=== PATIENT | female | born 1945 | race Caucasian/White ===

== ENCOUNTER 2019-09-17 14:18 | Inpatient (IN) | payer MEDICARE, MEDICAID, SELFPAY ==
[2019-09-17] VITALS (53 sets, daily range): BP systolic 68–136; BP diastolic 16–78; PULSE 57–110; RESP 9–19; TEMP 35.7–36.9; O2SAT 83–100
--- NOTE | 2019-09-17 14:15 | DI.CT_ITS ---
EXAM: CT HEAD - STROKE PROTOCOL CLINICAL HISTORY: AMS. TECHNIQUE: Imaging Protocol: Axial computed tomography images with coronal and sagittal reformatted images were created and reviewed COMPARISON: No exams were available for comparison FINDINGS: Ventricles and Extra axial spaces: Moderate atrophy is noted. The ventricles are normal in size. Hemorrhage: None. Cerebral parenchyma: Mild white matter changes of small vessel disease also appear stable.. Midline shift: None. Brainstem/Cerebellum: Normal. Calvarium: Normal. Visualized Paranasal sinuses/Mastoids: Clear. Soft Tissues: Unremarkable. IMPRESSION: No acute intracranial process.Stable appearance compared with 27 April 2017. RADIATION DOSE DELIVERED: DATA REPOSITORY: All CT scans at this facility are submitted to the National Radiology Data Registry (NRDR) Dose Index Registry (DIR) with the [employer] (ACR). RADIATION OPTIMIZATION: All CT scans at this facility use at least one of these dose optimization te chniques: automated exposure control; mA and/or kV adjustment per patient size (includes targeted exa ms where dose is matched to clinical indication); or iterative reconstruction.
--- NOTE | 2019-09-17 14:47 | W.ED.GENAD ---
Discharge Plan Discharge Details Chief Complaint: AMS/LOC Admit Date/Time: 09/17/19 18:36 Admit Provider: Nelson Pinto Attending Provider: Nelson Pinto Primary Care Provider: Satish Poole ED Provider: Luz Canas Discharge Data Discharge Date/Time-TO BE ENTERED AT DEPARTURE: 09/17/19 19:41 Medical Decision Making Gale Rojas is a 74 y/o woman with history of severe Alzheimer's disease presenting to the emergency department with unresponsiveness after several days of generalized weakness and not eating or drinking. On exam patient with GCS 7, withdraws from pain. Concern for altered mental status of unknown etiology in setting of patient with severe advanced dementia, advanced directive stating DNR/DNI, no antibiotics to be given at end of life, patient wishes to at home. Patient underwent CT upon arrival, which is read as no acute process. Unclear etiology of altered mental status at this time, ischemic stroke versus metabolic/lyte derangement versus infection versus other. I had a lengthy discussion with patient's daughter, who states that she wants her mother to be comfortable and receive fluids and antibiotics if indicated, otherwise does not want her mother to have intervention as per her wishes. I had a lengthy discussion with the patient regarding patient's very poor prognosis and likely imminent . Patient's daughter verbalizes understanding, and reiterates that she does not want her mother to receive significant intervention, but does want her to have antibiotics and IV fluid for comfort. Initial difficulty drawing labs likely due to patient with severe dehydration. Plan for IV fluid hydration, will obtain screening labs. I examined patient's genitalia with nursing during Ballesteros placement, patient with significant discharge from urethra with purulent appearance, urine cloudy. Patient with significant apparent discomfort during Ballesteros placement. Plan to start ceftriaxone for UTI. Screening labs show severe electrolyte derangement, including hyponatremia at 180, creatinine greater than 3. We will continue IV fluid hydration with normal saline as discussed with admitting physician Dr. Pinto. Plan for admission for UTI, dehydration. Clinical impression: UTI, dehydration Disposition: [facility] inpatient Medical Records Medical records reviewed: Yes I reviewed the patient's medical records. Imaging Data Radiologic Study: Attestation: I personally reviewed and interpreted this imaging study as follows: Radiologist's impression: EXAM: CT HEAD - STROKE PROTOCOL CLINICAL HISTORY: AMS. TECHNIQUE: Imaging Protocol: Axial computed tomography images with coronal and sagittal reformatted images were created and reviewed COMPARISON: No exams were available for comparison FINDINGS: Ventricles and Extra axial spaces: Moderate atrophy is noted. The ventricles are normal in size. Hemorrhage: None. Cerebral parenchyma: Mild white matter changes of small vessel disease also appear stable.. Midline shift: None. Brainstem/Cerebellum: Normal. Calvarium: Normal. Visualized Paranasal sinuses/Mastoids: Clear. Soft Tissues: Unremarkable. IMPRESSION: No acute intracranial process.Stable appearance compared with 27 April 2017. Lab Data Lab results reviewed: Yes I reviewed the patient's lab results. Labs: Laboratory Tests Range/Units 09/17/19 09/17/19 09/17/19 15:20 17:32 17:32 WBC (4.4-10.8) k/cumm 22.20 H RBC (4.00-5.20) m/cumm 5.90 H Hgb (12.0-15.5) g/dL 18.0 H Hct (36.0-46.0) % 63.2 H* MCV (80-95) fL 107.1 H MCH (27.0-33.0) pg 30.5 MCHC (32.0-36.0) g/dL 28.5 L RDW (11.7-14.6) % 15.8 H Plt Count (130-400) x1000/uL 180 MPV (8.0-11.0) fL 13.7 H Immature Gran % % 0.4 Neutrophils % 90.2 Lymphocytes % 4.8 Monocytes % 4.6 Eosinophils % 0.0 Basophils % 0.0 Absolute Neutrophils (1.2-6.7) k/cumm 20.02 H Absolute Lymphocytes (1.2-3.4) k/cumm 1.07 L Absolute Monocytes (0.11-0.7) k/cumm 1.02 H Absolute Eosinophils (0.0-0.7) k/cumm 0.00 Absolute Basophils (0.0-0.2) k/cumm 0.00 Differential Comment Diff reviewed RBC Morphology See below Macrocytosis 3+ PT Cancelled INR Cancelled Sodium (136-145) mmol/L 180 H* Potassium (3.5-5.1) mmol/L 3.9 Chloride (98-107) mmol/L 139 H Carbon Dioxide (21.0-32.0) mmol/L 22.9 Anion Gap (3-11) mmol/L 18.1 H BUN (7-18) mg/dL 153 H* Creatinine (0.55-1.02) mg/dL 3.99 H* Estimated GFR/1.73 m2 (mL/min/1.73m2) 11.01 Glucose (74-106) mg/dL 137 H Lactate (0.6-1.4) mmol/L Calcium (8.5-10.1) mg/dL 8.6 Total Bilirubin (0.2-1.0) mg/dL 1.1 H AST (15-37) U/L 100 H ALT (14-59) U/L 243 H Alkaline Phosphatase (46-116) U/L 115 Troponin I (<0.06) ng/Ml 0.08 H* Total Protein (6.4-8.2) g/dL 7.5 Albumin (3.4-5.0) g/dL 3.4 Range/Units 09/17/19 09/17/19 17:32 17:36 WBC (4.4-10.8) k/cumm RBC (4.00-5.20) m/cumm Hgb (12.0-15.5) g/dL Hct (36.0-46.0) % MCV (80-95) fL MCH (27.0-33.0) pg MCHC (32.0-36.0) g/dL RDW (11.7-14.6) % Plt Count (130-400) x1000/uL MPV (8.0-11.0) fL Immature Gran % % Neutrophils % Lymphocytes % Monocytes % Eosinophils % Basophils % Absolute Neutrophils (1.2-6.7) k/cumm Absolute Lymphocytes (1.2-3.4) k/cumm Absolute Monocytes (0.11-0.7) k/cumm Absolute Eosinophils (0.0-0.7) k/cumm Absolute Basophils (0.0-0.2) k/cumm Differential Comment RBC Morphology Macrocytosis PT INR Sodium (136-145) mmol/L Potassium (3.5-5.1) mmol/L Chloride (98-107) mmol/L Carbon Dioxide (21.0-32.0) mmol/L Anion Gap (3-11) mmol/L BUN (7-18) mg/dL Creatinine (0.55-1.02) mg/dL Estimated GFR/1.73 m2 (mL/min/1.73m2) Glucose (74-106) mg/dL Lactate (0.6-1.4) mmol/L 3.1 H* Calcium (8.5-10.1) mg/dL Total Bilirubin (0.2-1.0) mg/dL AST (15-37) U/L ALT (14-59) U/L Alkaline Phosphatase (46-116) U/L Troponin I (<0.06) ng/Ml Cancelled Total Protein (6.4-8.2) g/dL Albumin (3.4-5.0) g/dL ECG Data Attestation: I personally reviewed and interpreted this ECG (s) as follows: Interpretation: EKG shows sinus tachycardia at 103, normal axis, nonspecific ST changes, no STEMI, nondiagnostic EKG HPI General Mode of arrival: EMS. Date/Time Provider Initiated Documentation: 09/17/19 14:35. Limitations to Documentation: altered mental status. Information obtained by: family, EMS, RN notes reviewed and old records reviewed. HPI Narrative: Gale Rojas is a 74-year-old woman with a history of advanced Alzheimer's disease presenting to the emergency department with unresponsiveness. Patient is accompanied by her daughter, who provides a history. Patient has a history of severe Alzheimer's disease, and per palliative care note 07/04/2019, patient is able to walk but is nonverbal at baseline. Patient's daughter reports that patient has declined significantly over the past year, with drastic decline in the past few days. Patient's daughter reports that she has a long assistant manager quality management for the patient who lives with her. Over the past few days patient has been eating very minimally, and has not been getting out of bed. Her daughter reports that patient did not get out of bed today, did not eat anything this morning (she normally nibbles on a small amount of food in the morning), and then became unarousable this afternoon. No known trauma or specific inciting event. Patient's daughter confirms that patient is DNR/DNI as per her advanced directive is on file. Patient's daughter reports that she has not seem to be in pain or had any other appreciable symptoms recently other than generalized weakness and decreased appetite. Related Data Home Medications Medication Instructions Recorded Confirmed melatonin 10 mg PO HS 09/17/16 09/17/19 citalopram 10 mg tablet 20 mg PO HS tab 02/14/19 09/17/19 memantine 5 mg tablet 5 mg PO BID 02/14/19 09/17/19 trazodone 100 mg tablet 100 mg PO TID PRN #90 tab 03/01/19 09/17/19 risperidone 0.5 mg tablet 0.5 mg PO TID PRN #90 tab 03/06/19 09/17/19 Previous Rx's Medication Instructions Recorded trazodone 100 mg tablet 100 mg PO TID PRN #90 tab 03/01/19 risperidone 0.5 mg tablet 0.5 mg PO TID PRN #90 tab 03/06/19 Allergies Allergy/AdvReac Type Severity Reaction Status Date / Time No Known Allergies Allergy Unverified 09/17/19 14:30 General Stated Complaint: AMS/LOC CHRISTOPHE: 2 Review of Systems Narrative: Constitutional: denies fevers, reports generalized weakness, fatigue, decreased appetite Eyes: denies eye pain ENT: denies ear pain, sore throat Cardiovascular: denies chest pain Respiratory: denies SOB, cough GI: denies abdominal pain, vomiting, diarrhea : denies flank pain MSK: denies back pain, neck pain, arthralgias Skin: denies rash Neuro: denies headaches, focal weakness Review of systems provided by patient's daughter [facility] Medical History (Updated 09/18/19 @ 14:28 by Lorie Pruitt MD) Alzheimer disease severe can still walk but language and ability to communicate verbally is gone Anxiety (Chronic) Apnea for greater than 15 seconds (Acute) Combative behavior (Chronic) primarily toward [facility] has both haldol and risperidone ordered but neither work, per staff I have not seen this behavior either of the 2 times I have met Gale will likely need placement soon- Dying care (Acute) Female hirsutism (Acute) Hearing loss Incontinence (Chronic) both urine and feces Insomnia (Chronic) 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 Granddaughter No problems noted. Social History (Updated 09/18/19 @ 14:27 by Lorie Pruitt MD) Smoking/Tobacco Use Status: Current every day Tobacco: How many years used: 50 Second Hand Exposure: Yes Reason tobacco screening was not done: limited life expectancy Drug use: Never Caregiver/Support person: Yes Household members: children Housing: apartment Number of Children: 1 number of grandchildren: 3 Communication Needs: Corrective Lenses Education Level: high school Details: didn't finish Do you need help understanding health information?: Always current occupation: retired; used to work in [employer] x 30 years What is your relationship status?: How often do you talk on the phone with friends or family?: never How often do you get together with friends or relatives?: three or more times per week Panel score (0-1 are the most socially isolated patients): 1 What type of physical activity do you participate in: walking and independent ambulation Duration: other Details: paces when anxious, on and off throughout the day Frequency: daily Special franco needs: No Agree to transfusion: No Seatbelt use: always Do you feel safe at home: Yes Do you feel safe in your relationship?: Yes Additional Social history: Lives with only daughter Elise, her and their daughter. Grew up in [place], [place]. Attends [employer] 6 days per week. No family car, so transported by [facility]. Doesn't do well with transportation. Still smokes, per report. Not witnessed. Hx from staff/med records. Exam Narrative Exam Narrative: Constitutional: Withdraws from pain, otherwise unresponsive, eyes closed, ill-appearing HENT: head atraumatic/normocephalic/normal inspection, mucous membranes dry Eyes: conjunctiva normal, sclera normal, pupils 3mm b/l Neck: no stridor, trachea midline Chest: normal inspection Resp: normal work of breathing, LCTAB Cardio: normal rate, normal rhythm GI: abdomen soft, non-tender, non-distended Skin: warm, dry, normal color, no rash Neuro: GCS 7 Ext: no edema Course Vital Signs Vital signs: Vital Signs Temperature 36.1 C L 09/17/19 14:23 Pulse 64 09/17/19 14:23 Blood Pressure 136/65 09/17/19 14:23 Pulse Oximetry 98 09/17/19 14:23 Temperature 36.1 C L 09/17/19 14:23 Temperature Source Temporal Artery Scan 09/17/19 14:23 Pulse 74 09/17/19 14:25 Respiratory Effort Non-Labored 09/17/19 14:27 Blood Pressure 136/65 09/17/19 14:25 Blood Pressure Mean 82 09/17/19 14:25 Blood Pressure Position Supine 09/17/19 14:23 Pulse Oximetry 100 09/17/19 14:27 Oxygen Delivery Method Room Air 09/17/19 14:23 Oxygen Flow Rate 0 09/17/19 14:23
[2019-09-17] MEDS: Normal Saline 1,000 ML 1000 ML IV ×2 (15:20→17:35)
[2019-09-17 15:34] LABS: Abs Immature Grans 0.04 k/cumm (0.0-0.09); Immature Grans % 0.4 %; Lymphocytes % 4.8; Mean Corp. HGB Concentration 28.5 g/dL (32.0-36.0); Mean Corpuscular Hemoglobin 30.5 pg (27.0-33.0); Mean Corpuscular Volume 107.1 fL (80-95); Mean Platelet Volume 13.7 fL (8.0-11.0); Monocytes % 4.6; Neutrophils % 90.2; RBC Distribution Width 15.8 % (11.7-14.6)
[2019-09-17 15:39] LABS: Absolute Lymphocyte Count 1.07 k/cumm (1.2-3.4); Absolute Monocyte Count 1.02 k/cumm (0.11-0.7); Absolute Neutrophil Count 20.02 k/cumm (1.2-6.7)
[2019-09-17 15:40] LABS: Platelet Count 180 x1000/uL (130-400)
[2019-09-17 15:48] LABS: HCT 63.2 % (36.0-46.0)
[2019-09-17 16:14] LABS: Diff Comment Diff Reviewed; Macrocytosis 3+
[2019-09-17 17:49] LABS: Lactate 3.1 mmol/L (0.6-1.4)
--- NOTE | 2019-09-17 18:25 | W.PM.HP.N ---
Date of service: 09/17/19 Time of Service: 18:25 Assessment and Plan Assessment and plan (1) Sepsis: Status: Acute Assessment and plan: Sepsis like picture, with profound dehydration. Prognosis guarded. Will add CXR, but empiric Rocephin a reasonable choice. Will continue saline and follow electrolytes and renal function. Patient remains DNR and daughter understands gravity of situation. History of Present Illness History of Present Illness Chief Complaint: change mental status Narrative: 74 female with advanced dementia, cared nfor at home by daughter. Here with several days of increasing lethargy and poor intake. In ER w/u of note for BP 89/sys, WBC 22K, HCT 63, Na 180 and urine noted to be grossly cloudy (U/A pending). Care goals reviewed with daughter, wished comfort to be main focus, but wishes to try antibiotics and IVF, nothing further. Patient given liter of saline and dose Rocephin. Admitted for further management Review of Systems Unobtainable due to mental status [facility] Medical History Alzheimer disease severe can still walk but language and ability to communicate verbally is gone Anxiety (Chronic) Combative behavior (Chronic) primarily toward [facility] has both haldol and risperidone ordered but neither work, per staff I have not seen this behavior either of the 2 times I have met Gale will likely need placement soon- Hearing loss Incontinence (Chronic) both urine and feces Insomnia (Chronic) Mixed Alzheimer's and vascular dementia with behavior disturbances (Acute) Poor hygiene (Acute) Sundowning (Acute) takes trazodone to prevent worst sx Unintentional weight loss (Chronic) continues to lose weight Family History Daughter No problems noted. Granddaughter No problems noted. Social History Smoking/Tobacco Use Status: Current every day Tobacco: How many years used: 50 Second Hand Exposure: Yes Reason tobacco screening was not done: limited life expectancy Drug use: Never Caregiver/Support person: Yes Household members: children Housing: apartment Number of Children: 1 number of grandchildren: 3 Communication Needs: Corrective Lenses Education Level: high school Details: didn't finish Do you need help understanding health information?: Always current occupation: retired; used to work in [employer] x 30 years What is your relationship status?: How often do you talk on the phone with friends or family?: never How often do you get together with friends or relatives?: three or more times per week Panel score (0-1 are the most socially isolated patients): 1 What type of physical activity do you participate in: walking and independent ambulation Duration: other Details: paces when anxious, on and off throughout the day Frequency: daily Special franco needs: No Agree to transfusion: No Seatbelt use: always Do you feel safe at home: Yes Do you feel safe in your relationship?: Yes Additional Social history: Lives with only daughter Elise, her and their daughter. Grew up in [place], [place]. Attends [email or web address] 6 days per week. No family car, so transported by [facility]. Doesn't do well with transportation. Still smokes, per report. Not witnessed. Hx from staff/med records. Meds Home Medications and Allergies Home Medications Medication Instructions Recorded Confirmed Type melatonin 10 mg PO HS 09/17/16 04/27/17 History citalopram 10 mg tablet 20 mg PO HS tab 02/14/19 02/14/19 History memantine 5 mg tablet 5 mg PO BID 02/14/19 02/14/19 History trazodone 100 mg tablet 100 mg PO TID PRN #90 tab 03/01/19 Rx risperidone 0.5 mg tablet 0.5 mg PO TID PRN #90 tab 03/06/19 Rx Allergies Allergy/AdvReac Type Severity Reaction Status Date / Time No Known Allergies Allergy Unverified 09/17/19 14:30 Exam Narrative Exam Narrative: 89/60, 94, 13, 36.1, 83% RA. HEENT atraumatic; neck supple, lungs limited effort, grossly clear; heart RRR, abdomen soft and NT; extremities w/o edema; neuro non-specific response noxious stimuli Results Labs Result diagrams: 09/17/19 15:20 09/17/19 15:20 Labs: Laboratory Results - last 24 hr 09/17/19 09/17/19 09/17/19 15:20 17:32 17:36 WBC 22.20 H RBC 5.90 H Hgb 18.0 H Hct 63.2 H* MCV 107.1 H MCH 30.5 MCHC 28.5 L RDW 15.8 H Plt Count 180 MPV 13.7 H Immature Gran % 0.4 Neutrophils % 90.2 Lymphocytes % 4.8 Monocytes % 4.6 Eosinophils % 0.0 Basophils % 0.0 Absolute Neutrophils 20.02 H Absolute Lymphocytes 1.07 L Absolute Monocytes 1.02 H Absolute Eosinophils 0.00 Absolute Basophils 0.00 Differential Comment Diff reviewed RBC Morphology See below Macrocytosis 3+ Lactate 3.1 H* Troponin I Cancelled Last Vital Signs Temp 36.1 C L 09/17/19 14:23 Pulse 94 H 09/17/19 18:16 Resp 13 09/17/19 18:16 BP 89/60 L 09/17/19 18:16 Pulse Ox 83 L 09/17/19 18:16
[2019-09-17 18:30] LABS: ALT 243 U/L (14-59); AST 100 U/L (15-37); Albumin 3.4 g/dL (3.4-5.0); Alkaline Phosphatase 115 U/L (46-116); Anion Gap 18.1 mmol/L (3-11); Bilirubin, Total 1.1 mg/dL (0.2-1.0); CO2 22.9 mmol/L (21.0-32.0); Calcium 8.6 mg/dL (8.5-10.1); Chloride 139 mmol/L (98-107); Estimated GFR 11.01 (mL/min/1.73m2); Glucose 137 mg/dL (74-106); Potassium 3.9 mmol/L (3.5-5.1); Total Protein 7.5 g/dL (6.4-8.2)
[2019-09-17 18:31] LABS: BUN 153 mg/dL (7-18); CREATININE 3.99 mg/dL (0.55-1.02)
[2019-09-17 18:32] LABS: Troponin I 0.08 ng/Ml (<0.06)
[2019-09-17 18:34] LABS: Sodium 180 mmol/L (136-145)
[2019-09-17] MEDS: Normal Saline 1,000 ML 125 ML IV (21:03)
[2019-09-17] MEDS: cefTRIAXone 1,000 MG in Normal Saline 50 ML 100 MG IVPB (22:31)
[2019-09-18 03:12] VITALS: BP 113/77; PULSE 86; RESP 21; TEMP 36.8; O2SAT 96
[2019-09-18] MEDS: SODIUM CHLORIDE 0.45% 1,000 ML 100 ML IV (04:44)
[2019-09-18 06:59] LABS: HCT 52.8 % (36.0-46.0); HGB 15.8 g/dL (12.0-15.5); Mean Corp. HGB Concentration 29.9 g/dL (32.0-36.0); Mean Corpuscular Hemoglobin 30.6 pg (27.0-33.0); Mean Corpuscular Volume 102.1 fL (80-95); Mean Platelet Volume 13.2 fL (8.0-11.0); Platelet Count 156 x1000/uL (130-400); RBC 5.17 m/cumm (4.00-5.20); RBC Distribution Width 16.5 % (11.7-14.6); White Blood Cell Count 17.73 k/cumm (4.4-10.8)
[2019-09-18 07:18] LABS: Anion Gap 13.5 mmol/L (3-11); CO2 21.5 mmol/L (21.0-32.0); CREATININE 3.18 mg/dL (0.55-1.02); Calcium 7.7 mg/dL (8.5-10.1); Chloride 145 mmol/L (98-107); Glucose 119 mg/dL (74-106); Potassium 3.9 mmol/L (3.5-5.1)
[2019-09-18 07:27] LABS: BUN 140 mg/dL (7-18)
[2019-09-18 07:28] LABS: Sodium 180 mmol/L (136-145)
[2019-09-18 08:06] VITALS: BP 113/74; PULSE 90; RESP 16; TEMP 36.8; O2SAT 97
[2019-09-18 08:18] LABS: Bilirubin Negative (Negative); Blood Moderate (Negative); Clarity Sl Cloudy (Clear); Glucose Negative (Negative); Ketones Negative (Negative); Leukocyte Esterase Moderate (Negative); Nitrite Negative (Negative); pH 5.5 (5-8)
[2019-09-18 08:36] LABS: Bacteria Few HPF (Negative); Crystals Negative HPF (Negative); Epithelial Cells Few HPF (Negative); Mucus Trace (Negative)
[2019-09-18 08:37] LABS: C & S Indicated? Yes; Casts 0-2 Coarse Granular LPF (Negative)
--- NOTE | 2019-09-18 09:59 | PDOC.CMIN ---
- If Service Date Differs Date of service: 09/18/19 Time of Service: 14:32 Care Management Initial Assess REASON FOR HOSPITALIZATION:: Sepsis PAST MEDICAL HISTORY/PAST SURGICAL HISTORY:: Alzheimer disease, anxiety, combative behavior, hearing loss, incontinence, insomnia, mixed Alzheimer's and vascular dementia with behavior disturbances, poor hygiene, sundowning, unintentional weight loss PREVIOUS FUNCTIONAL STATUS/SOCIAL/FAMILY SUPPORTS:: Gale resides with her daughter, Elise, and son in law, Sahil. She had previously been attending [facility], with noted increased concerns around worsening dementia. Due to CV-19, [facility] is currently closed. Dr. Pruitt documented in June that Gale would likely require placement soon; unable to determine if any coordination support was provided to the family. CURRENT FUNCTIONAL STATUS:: Gale has advanced dementia and requires multimedia authoring specialist care. She is quite ill, and may pass during this admission. She was lying in bed, appearing to be actively dying per Dr. Pruitt's evaluation. ADVANCE DIRECTIVES:: None on file. Has patient been provided with information about the portal?: No Did the patient sign up for the portal?: No CODE STATUS:: DNR/DNI INSURANCE COVERAGE / FINANCIAL ISSUES:: Medicaid. Medicare CURRENT HOME/COMMUNITY SERVICES/EQUIPMENT:: Limited at this time due to CV-19 regulations. PRIMARY CARE PHYSICIAN:: Satish Poole POTENTIAL DISCHARGE NEEDS:: Palliative Care Consult. PATIENT/FAMILY EDUCATION NEEDS:: Review discharge instructions, discuss Ask Me Three. ANTICIPATED BARRIERS TO DISCHARGE:: None identified at this time. TRANSPORTATION:: TBD by disposition. PLAN:: Gale will continue to be closely monitored at this time. CM requested Palliative consult as patient is known to Dr. Pruitt who last saw Gale in June of this year. Dr. Pruitt arrived, assessed patient and transitioned Gale's care to SUPERINTENDENT POWER status. CM will continue to follow.
[2019-09-18] MEDS: Heparin 5,000 UNITS/ML VIAL 5000 UNITS SC (10:25)
--- NOTE | 2019-09-18 12:29 | W.PM.PROGNOT ---
Date of Service Date of service: 09/18/19 Time of Service: 12:30 Assessment and Plan Assessment and plan (1) Dehydration with hypernatremia: Status: Acute Assessment and plan: Little change in sodium level overnight with IV hydration although urine output is starting to appear. I have not been able to reach her daughter to discuss today's lab results and overall status. From reading the notes, it seems that goal of care is mainly directed towards comfort and if we can improve the situation through minimally invasive interventions such as IV fluids, that is fine. I am continuing IV hydration hoping to see a slow drop in her sodium level. Unless I hear otherwise from her daughter, I am going to continue to periodically do blood work. Given the overall goals of care I am discontinuing telemetry monitoring. (2) Urinary tract infection: Status: Acute Assessment and plan: Presumed urinary tract infection although may have asymptomatic bacteriuria. Culture is pending. Continues on parenteral, empiric ceftriaxone. (3) Mixed Alzheimer's and vascular dementia with behavior disturbances: Status: Acute Assessment and plan: Has not had agitated behavior and is rather lethargic. No medications indicated at this time. (4) Pressure ulcer: Status: Acute Assessment and plan: Right hip and buttock area. Topical care and frequent position changes. (5) Acute kidney injury: Status: Acute Assessment and plan: Presumably prerenal. Follow BUN and creatinine with efforts at rehydration. Subjective Subjective Interval history since last seen: Patient remains lethargic, unresponsive to verbal stimuli, occasional withdrawal to tactile stimuli. Has not been striking out. No vocalizations. Eyes are open but she does not Tom connected with her environment. Received IV fluids overnight, starting to make urine. Labs this morning showed no improvement in her sodium but her BUN and creatinine are slightly improved. She has not been febrile. Blood pressures in the 1 teens systolic, SaO2 on 2 L 97%. Telemetry has shown sinus rhythm with a very brief run of SVT, no other dysrhythmias. Exam Narrative Exam Narrative: Eyes are open, does not respond to verbal stimuli, moves her hands and legs to tactile stimuli. Quite hirsute. Slight deviation of the right eye outward, pupils equal. Oral mucous membranes poorly visualized, dry with very poor dentition. No JVD. Lungs slightly diminished breath sounds at the bases. Regular heart rhythm no murmur S3 or S4 heard. She does have bowel sounds although they are somewhat diminished. No manifestations of discomfort with palpation anywhere in the abdomen. Ballesteros catheter is cloudy or urmila-colored urine in the bag. There are two 3 mm pressure ulcerations in the right hip area, scattered scabs in the buttock area with mild erythema. She has some lichenification, nodular thickening of the skin labia majora on the right more than left. No ulcerations. Barely perceptible pulses in the feet 1+ at the wrist. Extremities are warm, there is no mottling. Objective Objective Clinical Data: Abnormal lab results 09/17/19 09/17/19 09/17/19 Range/Units 15:20 17:32 17:32 WBC 22.20 H (4.4-10.8) k/cumm RBC 5.90 H (4.00-5.20) m/cumm Hgb 18.0 H (12.0-15.5) g/dL Hct 63.2 H* (36.0-46.0) % MCV 107.1 H (80-95) fL MCHC 28.5 L (32.0-36.0) g/dL RDW 15.8 H (11.7-14.6) % MPV 13.7 H (8.0-11.0) fL Absolute Neutrophils 20.02 H (1.2-6.7) k/cumm Absolute Lymphocytes 1.07 L (1.2-3.4) k/cumm Absolute Monocytes 1.02 H (0.11-0.7) k/cumm Sodium 180 H* (136-145) mmol/L Chloride 139 H (98-107) mmol/L Anion Gap 18.1 H (3-11) mmol/L BUN 153 H* (7-18) mg/dL Creatinine 3.99 H* (0.55-1.02) mg/dL Glucose 137 H (74-106) mg/dL Lactate 3.1 H* (0.6-1.4) mmol/L Calcium (8.5-10.1) mg/dL Total Bilirubin 1.1 H (0.2-1.0) mg/dL AST 100 H (15-37) U/L ALT 243 H (14-59) U/L Troponin I 0.08 H* (<0.06) ng/Ml Urine Protein (Negative) mg/dL Urine Blood (Negative) Urine Urobilinogen (Up TO 0.2) EU/dL Ur Leukocyte Esterase (Negative) Urine RBC (0-2) HPF Urine WBC (0-5) HPF 09/18/19 09/18/19 09/18/19 Range/Units 06:17 06:17 07:45 WBC 17.73 H (4.4-10.8) k/cumm RBC (4.00-5.20) m/cumm Hgb 15.8 H D (12.0-15.5) g/dL Hct 52.8 H (36.0-46.0) % MCV 102.1 H D (80-95) fL MCHC 29.9 L (32.0-36.0) g/dL RDW 16.5 H (11.7-14.6) % MPV 13.2 H (8.0-11.0) fL Absolute Neutrophils (1.2-6.7) k/cumm Absolute Lymphocytes (1.2-3.4) k/cumm Absolute Monocytes (0.11-0.7) k/cumm Sodium 180 H* (136-145) mmol/L Chloride 145 H (98-107) mmol/L Anion Gap 13.5 H (3-11) mmol/L BUN 140 H* (7-18) mg/dL Creatinine 3.18 H D (0.55-1.02) mg/dL Glucose 119 H (74-106) mg/dL Lactate (0.6-1.4) mmol/L Calcium 7.7 L (8.5-10.1) mg/dL Total Bilirubin (0.2-1.0) mg/dL AST (15-37) U/L ALT (14-59) U/L Troponin I (<0.06) ng/Ml Urine Protein 30 H (Negative) mg/dL Urine Blood Moderate H (Negative) Urine Urobilinogen 1.0 H (Up TO 0.2) EU/dL Ur Leukocyte Esterase Moderate H (Negative) Urine RBC 10-20 H (0-2) HPF Urine WBC 10-20 H (0-5) HPF Vital Signs Temperature 36.8 C 09/18/19 08:06 Temperature Source Temporal Artery Scan 09/18/19 08:06 Pulse 90 09/18/19 08:06 Pulse Rhythm Regular 09/18/19 04:27 Pulse 91 H 09/17/19 19:01 Respiratory Rate 16 09/18/19 08:06 Respiratory Effort 09/18/19 04:27 Respiratory Depth Normal 09/18/19 04:27 Respiratory Pattern Normal 09/18/19 04:27 Blood Pressure 113/74 09/18/19 08:06 Blood Pressure Mean 31 09/17/19 19:01 Blood Pressure Position Supine 09/17/19 14:23 Pulse Oximetry 97 09/18/19 08:06 Oxygen Delivery Method Nasal Cannula 09/18/19 08:06 Oxygen Flow Rate 2 09/18/19 08:06 Pain Level 0 09/18/19 08:06 Comment 09/17/19 19:45 Intake & Output 09/17/19 09/18/19 09/18/19 23:59 11:59 23:59 Intake Total 2049 1010 / 1010 Output Total 350 / 350 Balance 2049 660 / 660 Weight 60.4 kg 60.4 kg Intake: IV 2049 1010 / 1010 Output: Urine 350 / 350 Other: Urine Color Dark Urmila Dark Urmila Urine Appearance Cloudy Sediment Sediment Comment foul smell Laboratory Results WBC 17.73 k/cumm (4.4-10.8) H 09/18/19 06:17 RBC 5.17 m/cumm (4.00-5.20) 09/18/19 06:17 Hgb 15.8 g/dL (12.0-15.5) H D 09/18/19 06:17 Hct 52.8 % (36.0-46.0) H 09/18/19 06:17 MCV 102.1 fL (80-95) H D 09/18/19 06:17 MCH 30.6 pg (27.0-33.0) 09/18/19 06:17 MCHC 29.9 g/dL (32.0-36.0) L 09/18/19 06:17 RDW 16.5 % (11.7-14.6) H 09/18/19 06:17 Plt Count 156 x1000/uL (130-400) 09/18/19 06:17 MPV 13.2 fL (8.0-11.0) H 09/18/19 06:17 Immature Gran % 0.4 % 09/17/19 15:20 Neutrophils % 90.2 09/17/19 15:20 Lymphocytes % 4.8 09/17/19 15:20 Monocytes % 4.6 09/17/19 15:20 Eosinophils % 0.0 09/17/19 15:20 Basophils % 0.0 09/17/19 15:20 Absolute Neutrophils 20.02 k/cumm (1.2-6.7) H 09/17/19 15:20 Absolute Lymphocytes 1.07 k/cumm (1.2-3.4) L 09/17/19 15:20 Absolute Monocytes 1.02 k/cumm (0.11-0.7) H 09/17/19 15:20 Absolute Eosinophils 0.00 k/cumm (0.0-0.7) 09/17/19 15:20 Absolute Basophils 0.00 k/cumm (0.0-0.2) 09/17/19 15:20 Differential Comment Diff reviewed 09/17/19 15:20 RBC Morphology See below 09/17/19 15:20 Macrocytosis 3+ 09/17/19 15:20 PT Cancelled 09/17/19 17:32 INR Cancelled 09/17/19 17:32 Sodium 180 mmol/L (136-145) H* 09/18/19 06:17 Potassium 3.9 mmol/L (3.5-5.1) 09/18/19 06:17 Chloride 145 mmol/L (98-107) H 09/18/19 06:17 Carbon Dioxide 21.5 mmol/L (21.0-32.0) 09/18/19 06:17 Anion Gap 13.5 mmol/L (3-11) H 09/18/19 06:17 BUN 140 mg/dL (7-18) H* 09/18/19 06:17 Creatinine 3.18 mg/dL (0.55-1.02) H D 09/18/19 06:17 Estimated GFR/1.73 m2 14.30 (mL/min/1.73m2) 09/18/19 06:17 Glucose 119 mg/dL (74-106) H 09/18/19 06:17 Lactate 3.1 mmol/L (0.6-1.4) H* 09/17/19 17:32 Calcium 7.7 mg/dL (8.5-10.1) L 09/18/19 06:17 Total Bilirubin 1.1 mg/dL (0.2-1.0) H 09/17/19 17:32 AST 100 U/L (15-37) H 09/17/19 17:32 ALT 243 U/L (14-59) H 09/17/19 17:32 Alkaline Phosphatase 115 U/L (46-116) 09/17/19 17:32 Troponin I Cancelled 09/17/19 17:36 Total Protein 7.5 g/dL (6.4-8.2) 09/17/19 17:32 Albumin 3.4 g/dL (3.4-5.0) 09/17/19 17:32 Urine Color Cancelled 09/18/19 08:02 Urine Clarity Cancelled 09/18/19 08:02 Urine pH Cancelled 09/18/19 08:02 Ur Specific [place] Cancelled 09/18/19 08:02 Urine Protein Cancelled 09/18/19 08:02 Urine Ketones Cancelled 09/18/19 08:02 Urine Blood Cancelled 09/18/19 08:02 Urine Nitrite Cancelled 09/18/19 08:02 Urine Bilirubin Cancelled 09/18/19 08:02 Urine Urobilinogen Cancelled 09/18/19 08:02 Ur Leukocyte Esterase Cancelled 09/18/19 08:02 Urine RBC 10-20 HPF (0-2) H 09/18/19 07:45 Urine WBC 10-20 HPF (0-5) H 09/18/19 07:45 Ur Epithelial Cells Few HPF (Negative) 09/18/19 07:45 Urine Crystals Negative HPF (Negative) 09/18/19 07:45 Urine Bacteria Few HPF (Negative) 09/18/19 07:45 Urine Casts 0-2 coarse granular LPF (Negative) 09/18/19 07:45 Urine Mucus Trace (Negative) 09/18/19 07:45 Ur Culture Indicated? Yes 09/18/19 07:45 Urine Glucose Cancelled 09/18/19 08:02
--- NOTE | 2019-09-18 14:06 | PCNE_ITS ---
Date of service: 09/18/19 Time of Service: 14:06 History of Present Illness History of Present Illness Chief Complaint: severe dehydration with abnl labs; dying Narrative: Gale is familiar to me from outpatient pall care. She was admitted last night critically ill with severely abnl labs, with a sodium of 180, BUN of 140 and hematocrit of over 63. I was asked to evaluate her for possible transfer home on hospice. When I entered the room, she had ptosis of both eyes. She had observed episodes of apnea. She was unresponsive. Her primary nurse reports that she has been grunting with repositioning. I attempted to contact both her daughter and son-in-law and were unable to reach them; I did leave messages on their phones about my grave concerns. Consults Consult date: 09/18/19 Requesting physician: Niall Paniagua Assessment and Plan Assessment and plan (1) Dying care: Status: Acute Assessment and plan: Gale is actively dying. After discussion with Dr Paniagua, hospitalist, decision made that she be put on CERTIFIED PROFESSIONAL MIDWIFE. Oral medications and IV abx and IVF stopped. Low dose morphine added for comfort. Phone calls left for family. Unable to speak. Even without this acute hospitalization, Gale was appropriate for hospice care. (2) Apnea for greater than 15 seconds: Status: Acute Assessment and plan: Part of her dying process. Expect she only has hours to days at most to live. (3) Dehydration with hypernatremia: Status: Acute Assessment and plan: Has not improved with rehydration. Given her HCT of >60, this likely had been going on for several days. Unable to contact family to formulate a more detailed picture of her recent health decline. (4) Mixed Alzheimer's and vascular dementia with behavior disturbances: Status: Acute Assessment and plan: Gale's overall cause of is due to this underlying illness, in my opinion. Review of Systems Unobtainable due to mental status [facility] Medical History (Updated 09/18/19 @ 14:28 by Lorie Pruitt MD) Alzheimer disease severe can still walk but language and ability to communicate verbally is gone Anxiety (Chronic) Apnea for greater than 15 seconds (Acute) Combative behavior (Chronic) primarily toward [facility] has both haldol and risperidone ordered but neither work, per staff I have not seen this behavior either of the 2 times I have met Gale will likely need placement soon- Dying care (Acute) Female hirsutism (Acute) Hearing loss Incontinence (Chronic) both urine and feces Insomnia (Chronic) 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 Granddaughter No problems noted. Social History (Updated 09/18/19 @ 14:27 by Lorie Pruitt MD) Smoking/Tobacco Use Status: Current every day Tobacco: How many years used: 50 Second Hand Exposure: Yes Reason tobacco screening was not done: limited life expectancy Drug use: Never Caregiver/Support person: Yes Household members: children Housing: apartment Number of Children: 1 number of grandchildren: 3 Communication Needs: Corrective Lenses Education Level: high school Details: didn't finish Do you need help understanding health information?: Always current occupation: retired; used to work in [employer] x 30 years What is your relationship status?: How often do you talk on the phone with friends or family?: never How often do you get together with friends or relatives?: three or more times per week Panel score (0-1 are the most socially isolated patients): 1 What type of physical activity do you participate in: walking and independent ambulation Duration: other Details: paces when anxious, on and off throughout the day Frequency: daily Special franco needs: No Agree to transfusion: No Seatbelt use: always Do you feel safe at home: Yes Do you feel safe in your relationship?: Yes Additional Social history: Lives with only daughter Elise, her and their daughter. Grew up in [place], [place]. Used to attend [employer] 6 days per week. No family car, so transported by [facility]. Until recently, still smoking. Hx from staff/med records. Exam Narrative Exam Narrative: Eyes are open, does not respond to verbal stimuli, moves her hands and legs to tactile stimuli. Quite hirsute. Slight deviation of the right eye outward, pupils equal. Oral mucous membranes poorly visualized, dry with very poor dentition. No JVD. Lungs slightly diminished breath sounds at the bases. Regular heart rhythm no murmur S3 or S4 heard. She does have bowel sounds although they are somewhat diminished. No manifestations of discomfort with palpation anywhere in the abdomen. Ballesteros catheter is cloudy or urmila-co lored urine in the bag. There are two 3 mm pressure ulcerations in the right hip area, scattered scabs in the buttock area with mild erythema. She has some lichenification, nodular thickening of the skin labia majora on the right more than left. No ulcerations. Barely perceptible pulses in the feet 1+ at the wrist. Extremities are warm, there is no mottling. Results Last Vital Signs Temp 98.2 F 09/18/19 08:06 Pulse 90 09/18/19 08:06 Resp 16 09/18/19 08:06 BP 113/74 09/18/19 08:06 Pulse Ox 97 09/18/19 08:06 Labs Result diagrams: 09/18/19 06:17 09/18/19 06:17 Labs: Laboratory Results - last 24 hr 09/17/19 09/17/19 09/17/19 15:20 17:32 17:32 WBC 22.20 H RBC 5.90 H Hgb 18.0 H Hct 63.2 H* MCV 107.1 H MCH 30.5 MCHC 28.5 L RDW 15.8 H Plt Count 180 MPV 13.7 H Immature Gran % 0.4 Neutrophils % 90.2 Lymphocytes % 4.8 Monocytes % 4.6 Eosinophils % 0.0 Basophils % 0.0 Absolute Neutrophils 20.02 H Absolute Lymphocytes 1.07 L Absolute Monocytes 1.02 H Absolute Eosinophils 0.00 Absolute Basophils 0.00 Differential Comment Diff reviewed RBC Morphology See below Macrocytosis 3+ PT Cancelled INR Cancelled Sodium 180 H* Potassium 3.9 Chloride 139 H Carbon Dioxide 22.9 Anion Gap 18.1 H BUN 153 H* Creatinine 3.99 H* Estimated GFR/1.73 m2 11.01 Glucose 137 H Lactate Calcium 8.6 Total Bilirubin 1.1 H AST 100 H ALT 243 H Alkaline Phosphatase 115 Troponin I 0.08 H* Total Protein 7.5 Albumin 3.4 Urine Color Urine Clarity Urine pH Ur Specific [place] Urine Protein Urine Ketones Urine Blood Urine Nitrite Urine Bilirubin Urine Urobilinogen Ur Leukocyte Esterase Urine RBC Urine WBC Ur Epithelial Cells Urine Crystals Urine Bacteria Urine Casts Urine Mucus Ur Culture Indicated? Urine Glucose 09/17/19 09/17/19 09/18/19 17:32 17:36 06:17 WBC RBC Hgb Hct MCV MCH MCHC RDW Plt Count MPV Immature Gran % Neutrophils % Lymphocytes % Monocytes % Eosinophils % Basophils % Absolute Neutrophils Absolute Lymphocytes Absolute Monocytes Absolute Eosinophils Absolute Basophils Differential Comment RBC Morphology Macrocytosis PT INR Sodium 180 H* Potassium 3.9 Chloride 145 H Carbon Dioxide 21.5 Anion Gap 13.5 H BUN 140 H* Creatinine 3.18 H D Estimated GFR/1.73 m2 14.30 Glucose 119 H Lactate 3.1 H* Calcium 7.7 L Total Bilirubin AST ALT Alkaline Phosphatase Troponin I Cancelled Total Protein Albumin Urine Color Urine Clarity Urine pH Ur Specific [place] Urine Protein Urine Ketones Urine Blood Urine Nitrite Urine Bilirubin Urine Urobilinogen Ur Leukocyte Esterase Urine RBC Urine WBC Ur Epithelial Cells Urine Crystals Urine Bacteria Urine Casts Urine Mucus Ur Culture Indicated? Urine Glucose 09/18/19 09/18/19 09/18/19 06:17 07:45 08:02 WBC 17.73 H RBC 5.17 Hgb 15.8 H D Hct 52.8 H MCV 102.1 H D MCH 30.6 MCHC 29.9 L RDW 16.5 H Plt Count 156 MPV 13.2 H Immature Gran % Neutrophils % Lymphocytes % Monocytes % Eosinophils % Basophils % Absolute Neutrophils Absolute Lymphocytes Absolute Monocytes Absolute Eosinophils Absolute Basophils Differential Comment RBC Morphology Macrocytosis PT INR Sodium Potassium Chloride Carbon Dioxide Anion Gap BUN Creatinine Estimated GFR/1.73 m2 Glucose Lactate Calcium Total Bilirubin AST ALT Alkaline Phosphatase Troponin I Total Protein Albumin Urine Color Yellow Cancelled Urine Clarity Sl cloudy Cancelled Urine pH 5.5 Cancelled Ur Specific [place] 1.020 Cancelled Urine Protein 30 H Cancelled Urine Ketones Negative Cancelled Urine Blood Moderate H Cancelled Urine Nitrite Negative Cancelled Urine Bilirubin Negative Cancelled Urine Urobilinogen 1.0 H Cancelled Ur Leukocyte Esterase Moderate H Cancelled Urine RBC 10-20 H Urine WBC 10-20 H Ur Epithelial Cells Few Urine Crystals Negative Urine Bacteria Few Urine Casts 0-2 coarse granular Urine Mucus Trace Ur Culture Indicated? Yes Urine Glucose Negative Cancelled
[2019-09-18] MEDS: Scopolamine 1 MG/3 DAYS PATCH TD (14:33)
--- NOTE | 2019-09-18 15:04 | CHAPLAIN ---
I met Gale and her daughter Beth yesterday (09/16) when Gale was in the ED. Beth explained that Gale has advanced dementia and was lilving with Beth and her , and also attending [employer] during the day. Beth asked me to contact her utilization review coordinator, Rev. Siobhan Parmar, of the [facility], and Beth gave me her phone number to pass along to Siobhan. Gale was admitted last night. I have stopped in to visit a few times today. She is on responsive. This afternoon her eyes were wide open and she was making some sounds but was not responsive. Dr. Pruitt, from palliative care, knows Gale and saw her today. Gale is now on comfort measures only. I will continue to visit.
--- NOTE | 2019-09-18 15:28 | PHA.REVIEW ---
Pharmacy Admission Review - Admission Clinical Review (Last Updated 09/18/19 @ 14:28 by Lorie Pruitt MD) Dying care (Acute) Apnea for greater than 15 seconds (Acute) Acute kidney injury (Acute) Pressure ulcer (Acute) Urinary tract infection (Acute) Dehydration with hypernatremia (Acute) Sepsis (Acute) Mixed Alzheimer's and vascular dementia with behavior disturbances (Acute) No Known Allergies Allergy (Unverified 09/17/19 14:30) Height 5 ft 5 in Weight 60.4 kg - Renal Dosing Renal Dosing: BUN 140 mg/dL (7-18) H* 09/18/19 06:17 Creatinine 3.18 mg/dL (0.55-1.02) H D 09/18/19 06:17 Medications needing adjustments: Reviewed (Crcl ~14.1 mL/min current meds okay) - Anticoagulation Anticoagulation: Hgb 15.8 g/dL (12.0-15.5) H D 09/18/19 06:17 Hct 52.8 % (36.0-46.0) H 09/18/19 06:17 Plt Count 156 x1000/uL (130-400) 09/18/19 06:17 INR Cancelled 09/17/19 17:32 Creatinine 3.18 mg/dL (0.55-1.02) H D 09/18/19 06:17 DVT 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: 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) Therapeutic Anticoagulation: N/A - Opiate Usage Evaluate Pain Scale/Pains Meds: Reviewed (morpine CADD) Scheduled Bowel Reg ordered if on Opiates?: No (prn med ordered) - Relevant Labs Sodium 180 mmol/L (136-145) H* 09/18/19 06:17 Potassium 3.9 mmol/L (3.5-5.1) 09/18/19 06:17 Chloride 145 mmol/L (98-107) H 09/18/19 06:17 Electrolytes, C-Reactive P, ESR: Reviewed - DM Control DM Control: Glucose 119 mg/dL (74-106) H 09/18/19 06:17 Insulin Dosing: N/A - Heart Failure/NV Heart Failure/NV: Troponin I Cancelled 09/17/19 17:36 EF%, ALIX's, B-Blockers, Diuretics: N/A - BP Control BP Control: Blood Pressure 113/74 If elevated: N/A - Qtc Review If Elevated: Reviewed (QTc 482) - IV to PO Switch IV Medications: N/A - Home Meds Relevent Home Meds Not ordered & why?: citalopram, melatonin, memantine, risperidone, trazodone (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 Morphine CADD started today.
[2019-09-18 15:54] VITALS: O2SAT 100
[2019-09-18 16:11] VITALS: O2SAT 99
--- NOTE | 2019-09-19 08:58 | PDOC.CMPRO ---
Care Management Progress Note Gale continues to be monitored closely at this time. 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 CM spoke with her daughter, Elise who reported she may be in this afternoon or possibly tomorrow to say goodbye to her Mom. She shared that her son, Black Saeed would like to say good bye as well. CM notified RN Certified Histologic Technician and Entry Sentry of visitor names. Elise reported the family would be utilizing [facility] for final arrangements and that Gale's AD in her safe stated she wanted to be cremated. CM spoke with Elise again in the afternoon to alert her that per provider, Gale was likely imminent and may pass within hours. Elise reported she would arrive around 1730 this evening; CM notified team members.
--- NOTE | 2019-09-19 13:05 | W.PM.PROGNOT ---
Date of Service Date of service: 09/19/19 Time of Service: 13:06 Assessment and Plan Assessment and plan (1) Dehydration with hypernatremia: Status: Acute Assessment and plan: Comfort measures only and so we are not measuring labs nor administering any IV fluids. (2) Urinary tract infection: Status: Acute Assessment and plan: Antibiotics stopped after addressing goals of care and focusing on comfort. (3) Mixed Alzheimer's and vascular dementia with behavior disturbances: Status: Acute Assessment and plan: Has not had agitated behavior. Not showing any awareness of her surroundings. (4) Pressure ulcer: Status: Acute Assessment and plan: Right hip and buttock area. Topical care and frequent position changes. (5) Acute kidney injury: Status: Acute Assessment and plan: Presumably prerenal. No treatment given focus on comfort measures. (6) Comfort measures only status: Status: Acute Assessment and plan: Comfortable on morphine infusion. Monitor for signs or symptoms of distress. I anticipate survival to be measured possibly in hours, in days at most. Subjective Subjective Interval history since last seen: In conversation with her daughter yesterday and in light of her severe presenting problems as well as chronic progressive dementia, decision was made to discontinue active treatment and focus on comfort measures only. She has not been manifesting discomfort. She is on a 1 mg/h morphine infusion subcutaneously and seems to be comfortable. She is having apneic pauses. There is a little bit of arousal with position change, no purposeful movements. Exam Narrative Exam Narrative: Lying in bed she is unresponsive to verbal or gentle tactile stimuli. She has apneic pauses of up to 10 seconds. Eyes with a fixed upward gaze. Oral mucosa dry. Regular heart rhythm with no murmur or S3 heard. No bowel sounds. Lungs have good air entry in the upper lung purvis diminished at the bases. Extremities are warm, 1+ pulses in the feet. Objective Objective Clinical Data: Vital Signs Temperature 36.8 C 09/18/19 08:06 Temperature Source Temporal Artery Scan 09/18/19 08:06 Pulse 90 09/18/19 08:06 Pulse Rhythm Regular 09/18/19 13:42 Pulse 91 H 09/17/19 19:01 Respiratory Rate 16 09/18/19 08:06 Respiratory Effort 09/19/19 10:36 Respiratory Depth Deep 09/19/19 10:36 Respiratory Pattern Normal 09/19/19 10:36 Blood Pressure 113/74 09/18/19 08:06 Blood Pressure Mean 31 09/17/19 19:01 Blood Pressure Position Supine 09/17/19 14:23 Pulse Oximetry 99 09/18/19 16:11 Oxygen Delivery Method Room Air 09/18/19 22:52 Oxygen Flow Rate 0 09/18/19 22:52 Pain Level 0 09/18/19 08:06 Comment 09/17/19 19:45 Intake & Output 09/18/19 09/19/19 09/19/19 23:59 11:59 23:59 Intake Total 1010.189 / 2020.189 0 / 0 Output Total 650 / 1000 450 / 450 Balance 360.189 / 1020.189 -450 / -450 Intake: IV 1010.189 / 2019.189 Oral 0 / 0 Output: Urine 650 / 1000 450 / 450 Other: Urine Color Dark Muna Dark Muna Urine Appearance Clear Cloudy Laboratory Results WBC 17.73 k/cumm (4.4-10.8) H 09/18/19 06:17 RBC 5.17 m/cumm (4.00-5.20) 09/18/19 06:17 Hgb 15.8 g/dL (12.0-15.5) H D 09/18/19 06:17 Hct 52.8 % (36.0-46.0) H 09/18/19 06:17 MCV 102.1 fL (80-95) H D 09/18/19 06:17 MCH 30.6 pg (27.0-33.0) 09/18/19 06:17 MCHC 29.9 g/dL (32.0-36.0) L 09/18/19 06:17 RDW 16.5 % (11.7-14.6) H 09/18/19 06:17 Plt Count 156 x1000/uL (130-400) 09/18/19 06:17 MPV 13.2 fL (8.0-11.0) H 09/18/19 06:17 Immature Gran % 0.4 % 09/17/19 15:20 Neutrophils % 90.2 09/17/19 15:20 Lymphocytes % 4.8 09/17/19 15:20 Monocytes % 4.6 09/17/19 15:20 Eosinophils % 0.0 04/20/20 15:20 Basophils % 0.0 09/17/19 15:20 Absolute Neutrophils 20.02 k/cumm (1.2-6.7) H 09/17/19 15:20 Absolute Lymphocytes 1.07 k/cumm (1.2-3.4) L 09/17/19 15:20 Absolute Monocytes 1.02 k/cumm (0.11-0.7) H 09/17/19 15:20 Absolute Eosinophils 0.00 k/cumm (0.0-0.7) 09/17/19 15:20 Absolute Basophils 0.00 k/cumm (0.0-0.2) 09/17/19 15:20 Differential Comment Diff reviewed 09/17/19 15:20 RBC Morphology See below 09/17/19 15:20 Macrocytosis 3+ 09/17/19 15:20 PT Cancelled 09/17/19 17:32 INR Cancelled 09/17/19 17:32 Sodium 180 mmol/L (136-145) H* 09/18/19 06:17 Potassium 3.9 mmol/L (3.5-5.1) 09/18/19 06:17 Chloride 145 mmol/L (98-107) H 09/18/19 06:17 Carbon Dioxide 21.5 mmol/L (21.0-32.0) 09/18/19 06:17 Anion Gap 13.5 mmol/L (3-11) H 09/18/19 06:17 BUN 140 mg/dL (7-18) H* 09/18/19 06:17 Creatinine 3.18 mg/dL (0.55-1.02) H D 09/18/19 06:17 Estimated GFR/1.73 m2 14.30 (mL/min/1.73m2) 09/18/19 06:17 Glucose 119 mg/dL (74-106) H 09/18/19 06:17 Lactate 3.1 mmol/L (0.6-1.4) H* 09/17/19 17:32 Calcium 7.7 mg/dL (8.5-10.1) L 09/18/19 06:17 Total Bilirubin 1.1 mg/dL (0.2-1.0) H 09/17/19 17:32 AST 100 U/L (15-37) H 09/17/19 17:32 ALT 243 U/L (14-59) H 09/17/19 17:32 Alkaline Phosphatase 115 U/L (46-116) 09/17/19 17:32 Troponin I Cancelled 09/17/19 17:36 Total Protein 7.5 g/dL (6.4-8.2) 09/17/19 17:32 Albumin 3.4 g/dL (3.4-5.0) 09/17/19 17:32 Urine Color Cancelled 09/18/19 08:02 Urine Clarity Cancelled 09/18/19 08:02 Urine pH Cancelled 09/18/19 08:02 Ur Specific [place] Cancelled 09/18/19 08:02 Urine Protein Cancelled 09/18/19 08:02 Urine Ketones Cancelled 09/18/19 08:02 Urine Blood Cancelled 09/18/19 08:02 Urine Nitrite Cancelled 09/18/19 08:02 Urine Bilirubin Cancelled 09/18/19 08:02 Urine Urobilinogen Cancelled 09/18/19 08:02 Ur Leukocyte Esterase Cancelled 09/18/19 08:02 Urine RBC 10-20 HPF (0-2) H 09/18/19 07:45 Urine WBC 10-20 HPF (0-5) H 09/18/19 07:45 Ur Epithelial Cells Few HPF (Negative) 09/18/19 07:45 Urine Crystals Negative HPF (Negative) 09/18/19 07:45 Urine Bacteria Few HPF (Negative) 09/18/19 07:45 Urine Casts 0-2 coarse granular LPF (Negative) 09/18/19 07:45 Urine Mucus Trace (Negative) 09/18/19 07:45 Ur Culture Indicated? Yes 09/18/19 07:45 Urine Glucose Cancelled 09/18/19 08:02
--- NOTE | 2019-09-20 09:46 | CHAPLAIN ---
I spent time with Gale on and off yesterday. Gale was not responsive and had significant gaps between breaths. I was in touch with her daughter, Beth, by text message. She said she was coming in to visit around 5:30 p.m. She called me at home at 7 p.m. to say her son Black was at [facility] with her but staff was only allowing one visitor at a time and Black did not want to visit alone. I called and spoke with the med/surg food production supervisor, Abbie Rey RN, who said she would talk with the tank house operator to see if two people would visit with Gale, and then would let Beth know. I called Beth a little later and she and Black were both in Gale's room.
[2019-09-20] MEDS: Refresh PLUS Eye Drops 0.4ml 2 EACH OU ×2 (11:27→15:52)
--- NOTE | 2019-09-20 12:23 | PGE_ITS ---
Date of Service Date of service: 09/20/19 Time of Service: 10:45 Assessment and Plan Assessment and plan (1) Comfort measures only status: Status: Acute Assessment and plan: Continue to focus on comfort measures. No vitals or labs. Still showing signs of peripheral perfusion of that are not indicative of imminent . Nevertheless, survival could be measured in hours, still more likely days. Continue morphine infusion and adjust rate upward if there are signs of distress or discomfort. Subjective Subjective Interval history since last seen: Some behaviors overnight suggesting increased discomfort resulting in increased rate of morphine infusion. Seems comfortable since. No response to environment. Exam Narrative Exam Narrative: Somewhat noisy inspiratory and expiratory breathing, regular pattern. No response to tactile or verbal stimulation. No spontaneous movements of any extremities. Heart rhythm regular. Upper airway inspiratory and expiratory sounds peripheral lung purvis without crackles or wheezing heard although breath sounds quite diminished. Abdomen quiet. No manifestations of pain with palpation. Extremities still are warm, 1+ distal pulses. No skin mottling. Objective Objective Clinical Data: Vital Signs Temperature 36.8 C 09/18/19 08:06 Temperature Source Temporal Artery Scan 09/18/19 08:06 Pulse 90 09/18/19 08:06 Pulse Rhythm Regular 09/18/19 13:42 Pulse 91 H 09/17/19 19:01 Respiratory Rate 16 09/18/19 08:06 Respiratory Effort 09/20/19 04:32 Respiratory Depth Deep 09/20/19 04:32 Respiratory Pattern Normal 09/20/19 11:42 Blood Pressure 113/74 09/18/19 08:06 Blood Pressure Mean 31 09/17/19 19:01 Blood Pressure Position Supine 09/17/19 14:23 Pulse Oximetry 99 09/18/19 16:11 Oxygen Delivery Method Room Air 09/18/19 22:52 Oxygen Flow Rate 0 09/18/19 22:52 Pain Level 0 09/18/19 08:06 Comment 09/17/19 19:45 Intake & Output 09/19/19 09/20/19 09/20/19 23:59 11:59 23:59 Intake Total Output Total 500 / 950 250 / 250 Balance -500 / -950 -238.259 / -238.259 Intake: IV Output: Urine 500 / 950 250 / 250 Other: Urine Color Light Muna Dark Muna Urine Appearance Clear Cloudy Laboratory Results WBC 17.73 k/cumm (4.4-10.8) H 09/18/19 06:17 RBC 5.17 m/cumm (4.00-5.20) 09/18/19 06:17 Hgb 15.8 g/dL (12.0-15.5) H D 09/18/19 06:17 Hct 52.8 % (36.0-46.0) H 09/18/19 06:17 MCV 102.1 fL (80-95) H D 09/18/19 06:17 MCH 30.6 pg (27.0-33.0) 09/18/19 06:17 MCHC 29.9 g/dL (32.0-36.0) L 09/18/19 06:17 RDW 16.5 % (11.7-14.6) H 09/18/19 06:17 Plt Count 156 x1000/uL (130-400) 09/18/19 06:17 MPV 13.2 fL (8.0-11.0) H 09/18/19 06:17 Immature Gran % 0.4 % 09/17/19 15:20 Neutrophils % 90.2 09/17/19 15:20 Lymphocytes % 4.8 09/17/19 15:20 Monocytes % 4.6 09/17/19 15:20 Eosinophils % 0.0 09/17/19 15:20 Basophils % 0.0 09/17/19 15:20 Absolute Neutrophils 20.02 k/cumm (1.2-6.7) H 09/17/19 15:20 Absolute Lymphocytes 1.07 k/cumm (1.2-3.4) L 09/17/19 15:20 Absolute Monocytes 1.02 k/cumm (0.11-0.7) H 09/17/19 15:20 Absolute Eosinophils 0.00 k/cumm (0.0-0.7) 09/17/19 15:20 Absolute Basophils 0.00 k/cumm (0.0-0.2) 09/17/19 15:20 Differential Comment Diff reviewed 09/17/19 15:20 RBC Morphology See below 09/17/19 15:20 Macrocytosis 3+ 09/17/19 15:20 PT Cancelled 09/17/19 17:32 INR Cancelled 09/17/19 17:32 Sodium 180 mmol/L (136-145) H* 09/18/19 06:17 Potassium 3.9 mmol/L (3.5-5.1) 09/18/19 06:17 Chloride 145 mmol/L (98-107) H 09/18/19 06:17 Carbon Dioxide 21.5 mmol/L (21.0-32.0) 09/18/19 06:17 Anion Gap 13.5 mmol/L (3-11) H 09/18/19 06:17 BUN 140 mg/dL (7-18) H* 09/18/19 06:17 Creatinine 3.18 mg/dL (0.55-1.02) H D 09/18/19 06:17 Estimated GFR/1.73 m2 14.30 (mL/min/1.73m2) 09/18/19 06:17 Glucose 119 mg/dL (74-106) H 09/18/19 06:17 Lactate 3.1 mmol/L (0.6-1.4) H* 09/17/19 17:32 Calcium 7.7 mg/dL (8.5-10.1) L 09/18/19 06:17 Total Bilirubin 1.1 mg/dL (0.2-1.0) H 09/17/19 17:32 AST 100 U/L (15-37) H 09/17/19 17:32 ALT 243 U/L (14-59) H 09/17/19 17:32 Alkaline Phosphatase 115 U/L (46-116) 09/17/19 17:32 Troponin I Cancelled 09/17/19 17:36 Total Protein 7.5 g/dL (6.4-8.2) 09/17/19 17:32 Albumin 3.4 g/dL (3.4-5.0) 09/17/19 17:32 Urine Color Cancelled 09/18/19 08:02 Urine Clarity Cancelled 09/18/19 08:02 Urine pH Cancelled 09/18/19 08:02 Ur Specific [place] Cancelled 09/18/19 08:02 Urine Protein Cancelled 09/18/19 08:02 Urine Ketones Cancelled 09/18/19 08:02 Urine Blood Cancelled 09/18/19 08:02 Urine Nitrite Cancelled 09/18/19 08:02 Urine Bilirubin Cancelled 09/18/19 08:02 Urine Urobilinogen Cancelled 09/18/19 08:02 Ur Leukocyte Esterase Cancelled 09/18/19 08:02 Urine RBC 10-20 HPF (0-2) H 09/18/19 07:45 Urine WBC 10-20 HPF (0-5) H 09/18/19 07:45 Ur Epithelial Cells Few HPF (Negative) 09/18/19 07:45 Urine Crystals Negative HPF (Negative) 09/18/19 07:45 Urine Bacteria Few HPF (Negative) 09/18/19 07:45 Urine Casts 0-2 coarse granular LPF (Negative) 09/18/19 07:45 Urine Mucus Trace (Negative) 09/18/19 07:45 Ur Culture Indicated? Yes 09/18/19 07:45 Urine Glucose Cancelled 09/18/19 08:02
--- NOTE | 2019-09-20 16:27 | CHAPLAIN ---
I sat with Gale on and off today. She continues to be unresponsive. She seems comfortable. Her daughter and grandson visited last evening.
--- NOTE | 2019-09-20 21:55 | PDOC.CMPRO ---
- If Service Date Differs Date of service: 09/20/19 Time of Service: 09:00 Care Management Progress Note S/O: Gale remains on comfort measures only for end of life care at [facility]. No changes today she remains on a CADD pump for symptom management. A: Gale is a 74 year old female admitted with dehydration, sepsis with a history of dementia and failing health. Now on comfort measures only for end of life care. P: Gale will remain at [facility]. [facility] home is the home of choice per family. CM to continue to support patient and family.
--- NOTE | 2019-09-21 09:57 | CMPROGNOTE_ITS ---
Care Management Progress Note S/O: Gale remains on comfort measures only for end of life care at [facility]. Beth called this morning to check on her mother, CM notified of no current changes at this time. The family has visited and said their goodbyes, per Beth. The family is able to visit (one at a time) if they so desire. She remains on a CADD pump for symptom management. CM continues to support family. A: Gale is a 74 year old female admitted to [facility] with dehydration, sepsis with a history of dementia and failing health. Now on comfort measures only for end of life care. P: Gale will remain at [facility] for end of life care. The family has chosen [facility] for final arrangements. CM to continue to support patient and family.
--- NOTE | 2019-09-21 12:33 | PGE_ITS ---
Date of Service Date of service: 09/21/19 Time of Service: 12:33 Assessment and Plan Assessment and plan (1) Comfort measures only status: Start date: 09/21/19 Start time: 12:34 Status: Acute Assessment and plan: Continue to focus on comfort measures. No vitals or labs. actively dying, survival could be measured in hours, still more likely days. Continue morphine infusion and adjust rate upward if there are signs of distress or discomfort. Subjective Subjective Patient reports: other Interval history since last seen: continues to be unresponsive. CAD pump in p lace. Not appearing in pain Exam Narrative Exam Narrative: Somewhat noisy inspiratory and expiratory breathing, regular pattern. No response to tactile or verbal stimulation. No spontaneous movements of any extremities. Heart rhythm regular. Upper airway inspiratory and expiratory sounds peripheral lung purvis without crackles or wheezing heard although breath sounds quite diminished. Abdomen quiet. No manifestations of pain with palpation. Extremities still are warm, 1+ distal pulses. No skin mottling. Objective Objective Clinical Data: Vital Signs Temperature 36.8 C 09/18/19 08:06 Temperature Source Temporal Artery Scan 09/18/19 08:06 Pulse 90 09/18/19 08:06 Pulse Rhythm Regular 09/18/19 13:42 Pulse 91 H 09/17/19 19:01 Respiratory Rate 16 09/18/19 08:06 Respiratory Effort 09/21/19 07:25 Respiratory Depth Shallow 09/21/19 07:25 Respiratory Pattern Normal 09/21/19 07:25 Blood Pressure 113/74 09/18/19 08:06 Blood Pressure Mean 31 09/17/19 19:01 Blood Pressure Position Supine 09/17/19 14:23 Pulse Oximetry 99 09/18/19 16:11 Oxygen Delivery Method Room Air 09/18/19 22:52 Oxygen Flow Rate 0 09/18/19 22:52 Pain Level 0 09/18/19 08:06 Comment 09/17/19 19:45 Intake & Output 09/20/19 09/21/19 09/21/19 23:59 11:59 23:59 Intake Total 1.482 / 13.223 ..1 1.733 11.821 Output Total 200 / 450 Balance -198.518 / -436.777 . 1.733 .821 Intake: IV 1.482 / 13.223 10.088 / 11.821 1.733 / 11.821 Output: Urine 200 / 450 Other: Urine Color Dark Muna Urine Appearance Cloudy Laboratory Results WBC 17.73 k/cumm (4.4-10.8) H 09/18/19 06:17 RBC 5.17 m/cumm (4.00-5.20) 09/18/19 06:17 Hgb 15.8 g/dL (12.0-15.5) H D 09/18/19 06:17 Hct 52.8 % (36.0-46.0) H 09/18/19 06:17 MCV 102.1 fL (80-95) H D 09/18/19 06:17 MCH 30.6 pg (27.0-33.0) 09/18/19 06:17 MCHC 29.9 g/dL (32.0-36.0) L 09/18/19 06:17 RDW 16.5 % (11.7-14.6) H 09/18/19 06:17 Plt Count 156 x1000/uL (130-400) 09/18/19 06:17 MPV 13.2 fL (8.0-11.0) H 09/18/19 06:17 Immature Gran % 0.4 % 09/17/19 15:20 Neutrophils % 90.2 09/17/19 15:20 Lymphocytes % 4.8 09/17/19 15:20 Monocytes % 4.6 09/17/19 15:20 Eosinophils % 0.0 09/17/19 15:20 Basophils % 0.0 09/17/19 15:20 Absolute Neutrophils 20.02 k/cumm (1.2-6.7) H 09/17/19 15:20 Absolute Lymphocytes 1.07 k/cumm (1.2-3.4) L 09/17/19 15:20 Absolute Monocytes 1.02 k/cumm (0.11-0.7) H 09/17/19 15:20 Absolute Eosinophils 0.00 k/cumm (0.0-0.7) 09/17/19 15:20 Absolute Basophils 0.00 k/cumm (0.0-0.2) 09/17/19 15:20 Differential Comment Diff reviewed 09/17/19 15:20 RBC Morphology See below 09/17/19 15:20 Macrocytosis 3+ 09/17/19 15:20 PT Cancelled 09/17/19 17:32 INR Cancelled 09/17/19 17:32 Sodium 180 mmol/L (136-145) H* 09/18/19 06:17 Potassium 3.9 mmol/L (3.5-5.1) 09/18/19 06:17 Chloride 145 mmol/L (98-107) H 09/18/19 06:17 Carbon Dioxide 21.5 mmol/L (21.0-32.0) 09/18/19 06:17 Anion Gap 13.5 mmol/L (3-11) H 09/18/19 06:17 BUN 140 mg/dL (7-18) H* 09/18/19 06:17 Creatinine 3.18 mg/dL (0.55-1.02) H D 09/18/19 06:17 Estimated GFR/1.73 m2 14.30 (mL/min/1.73m2) 09/18/19 06:17 Glucose 119 mg/dL (74-106) H 09/18/19 06:17 Lactate 3.1 mmol/L (0.6-1.4) H* 09/17/19 17:32 Calcium 7.7 mg/dL (8.5-10.1) L 09/18/19 06:17 Total Bilirubin 1.1 mg/dL (0.2-1.0) H 09/17/19 17:32 AST 100 U/L (15-37) H 09/17/19 17:32 ALT 243 U/L (14-59) H 09/17/19 17:32 Alkaline Phosphatase 115 U/L (46-116) 09/17/19 17:32 Troponin I Cancelled 09/17/19 17:36 Total Protein 7.5 g/dL (6.4-8.2) 09/17/19 17:32 Albumin 3.4 g/dL (3.4-5.0) 09/17/19 17:32 Urine Color Cancelled 09/18/19 08:02 Urine Clarity Cancelled 09/18/19 08:02 Urine pH Cancelled 09/18/19 08:02 Ur Specific [place] Cancelled 09/18/19 08:02 Urine Protein Cancelled 09/18/19 08:02 Urine Ketones Cancelled 09/18/19 08:02 Urine Blood Cancelled 09/18/19 08:02 Urine Nitrite Cancelled 09/18/19 08:02 Urine Bilirubin Cancelled 09/18/19 08:02 Urine Urobilinogen Cancelled 09/18/19 08:02 Ur Leukocyte Esterase Cancelled 09/18/19 08:02 Urine RBC 10-20 HPF (0-2) H 09/18/19 07:45 Urine WBC 10-20 HPF (0-5) H 09/18/19 07:45 Ur Epithelial Cells Few HPF (Negative) 09/18/19 07:45 Urine Crystals Negative HPF (Negative) 09/18/19 07:45 Urine Bacteria Few HPF (Negative) 09/18/19 07:45 Urine Casts 0-2 coarse granular LPF (Negative) 09/18/19 07:45 Urine Mucus Trace (Negative) 09/18/19 07:45 Ur Culture Indicated? Yes 09/18/19 07:45 Urine Glucose Cancelled 09/18/19 08:02
--- NOTE | 2019-09-21 13:27 | W.NUTRFU ---
Date of service: 09/21/19 Time of Service: 13:27 Nutritional Follow up NOTE: Pt here for end of life, dying care. 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 Time Spent in Nutritional Counseling and Treatment: 0 time spent face to face
[2019-09-21] MEDS: Scopolamine 1 MG/3 DAYS PATCH TD (14:10)
[2019-09-21] MEDS: Refresh PLUS Eye Drops 0.4ml 2 EACH OU ×2 (14:13→22:30)
--- NOTE | 2019-09-22 10:04 | W.PM.PROGNOT ---
Date of Service Date of service: 09/22/19 Time of Service: 10:04 Assessment and Plan Assessment and plan (1) Comfort measures only status: Status: Acute Assessment and plan: Continue to focus on comfort measures. No vitals or labs. actively dying, survival could be measured in hours, likely will pass in next 24 hours. Continue morphine infusion and bolus x 2 overnight for breathing. Unresponsive at this time. 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 Eyes partially open while sleeping. snoring respirations. Little urine output will likely pass in the next 24 hours however could be days. Exam Narrative Exam Narrative: Somewhat noisy inspiratory and expiratory breathing, regular pattern snoring respirations. No response to tactile or verbal stimulation. No spontaneous movements of any extremities. Heart rhythm regular. Upper airway inspiratory and expiratory sounds peripheral lung purvis without crackles or wheezing heard although breath sounds quite diminished. Abdomen quiet. No manifestations of pain with palpation. Extremities still are warm, 1+ distal pulses. No skin mottling. Objective Objective Clinical Data: Vital Signs Temperature 36.8 C 09/18/19 08:06 Temperature Source Temporal Artery Scan 09/18/19 08:06 Pulse 90 09/18/19 08:06 Pulse Rhythm Regular 09/18/19 13:42 Pulse 91 H 09/17/19 19:01 Respiratory Rate 16 09/18/19 08:06 Respiratory Effort Incrsd Work of Breathing 09/22/19 00:35 Respiratory Depth Shallow 09/22/19 00:35 Respiratory Pattern Irregular 09/22/19 00:35 Blood Pressure 113/74 09/18/19 08:06 Blood Pressure Mean 31 09/17/19 19:01 Blood Pressure Position Supine 09/17/19 14:23 Pulse Oximetry 99 09/18/19 16:11 Oxygen Delivery Method Room Air 09/21/19 23:14 Oxygen Flow Rate 0 09/21/19 23:14 Pain Level 0 09/18/19 08:06 Comment 09/17/19 19:45 Intake & Output 09/21/19 09/21/19 09/22/19 11:59 23:59 11:59 Intake Total 10.088 / 19.309 9.221 / 19.309 Output Total 125 / 125 Balance 10.088 / -105.691 -115.779 / -105.691 Intake: IV 10.088 / 19.309 9.221 / .309 Output: Urine 125 / 125 Other: Urine Color Dark Muna Urine Appearance Clear Laboratory Results WBC 17.73 k/cumm (4.4-10.8) H 09/18/19 06:17 RBC 5.17 m/cumm (4.00-5.20) 09/18/19 06:17 Hgb 15.8 g/dL (12.0-15.5) H D 09/18/19 06:17 Hct 52.8 % (36.0-46.0) H 09/18/19 06:17 MCV 102.1 fL (80-95) H D 09/18/19 06:17 MCH 30.6 pg (27.0-33.0) 09/18/19 06:17 MCHC 29.9 g/dL (32.0-36.0) L 09/18/19 06:17 RDW 16.5 % (11.7-14.6) H 09/18/19 06:17 Plt Count 156 x1000/uL (130-400) 09/18/19 06:17 MPV 13.2 fL (8.0-11.0) H 09/18/19 06:17 Immature Gran % 0.4 % 09/17/19 15:20 Neutrophils % 90.2 09/17/19 15:20 Lymphocytes % 4.8 09/17/19 15:20 Monocytes % 4.6 09/17/19 15:20 Eosinophils % 0.0 09/17/19 15:20 Basophils % 0.0 09/17/19 15:20 Absolute Neutrophils 20.02 k/cumm (1.2-6.7) H 09/17/19 15:20 Absolute Lymphocytes 1.07 k/cumm (1.2-3.4) L 09/17/19 15:20 Absolute Monocytes 1.02 k/cumm (0.11-0.7) H 09/17/19 15:20 Absolute Eosinophils 0.00 k/cumm (0.0-0.7) 09/17/19 15:20 Absolute Basophils 0.00 k/cumm (0.0-0.2) 09/17/19 15:20 Differential Comment Diff reviewed 09/17/19 15:20 RBC Morphology See below 09/17/19 15:20 Macrocytosis 3+ 09/17/19 15:20 PT Cancelled 09/17/19 17:32 INR Cancelled 09/17/19 17:32 Sodium 180 mmol/L (136-145) H* 09/18/19 06:17 Potassium 3.9 mmol/L (3.5-5.1) 09/18/19 06:17 Chloride 145 mmol/L (98-107) H 09/18/19 06:17 Carbon Dioxide 21.5 mmol/L (21.0-32.0) 09/18/19 06:17 Anion Gap 13.5 mmol/L (3-11) H 09/18/19 06:17 BUN 140 mg/dL (7-18) H* 09/18/19 06:17 Creatinine 3.18 mg/dL (0.55-1.02) H D 09/18/19 06:17 Estimated GFR/1.73 m2 14.30 (mL/min/1.73m2) 09/18/19 06:17 Glucose 119 mg/dL (74-106) H 09/18/19 06:17 Lactate 3.1 mmol/L (0.6-1.4) H* 09/17/19 17:32 Calcium 7.7 mg/dL (8.5-10.1) L 09/18/19 06:17 Total Bilirubin 1.1 mg/dL (0.2-1.0) H 09/17/19 17:32 AST 100 U/L (15-37) H 09/17/19 17:32 ALT 243 U/L (14-59) H 09/17/19 17:32 Alkaline Phosphatase 115 U/L (46-116) 09/17/19 17:32 Troponin I Cancelled 09/17/19 17:36 Total Protein 7.5 g/dL (6.4-8.2) 09/17/19 17:32 Albumin 3.4 g/dL (3.4-5.0) 09/17/19 17:32 Urine Color Cancelled 09/18/19 08:02 Urine Clarity Cancelled 09/18/19 08:02 Urine pH Cancelled 09/18/19 08:02 Ur Specific Iron Station Cancelled 09/18/19 08:02 Urine Protein Cancelled 09/18/19 08:02 Urine Ketones Cancelled 09/18/19 08:02 Urine Blood Cancelled 09/18/19 08:02 Urine Nitrite Cancelled 09/18/19 08:02 Urine Bilirubin Cancelled 09/18/19 08:02 Urine Urobilinogen Cancelled 09/18/19 08:02 Ur Leukocyte Esterase Cancelled 09/18/19 08:02 Urine RBC 10-20 HPF (0-2) H 09/18/19 07:45 Urine WBC 10-20 HPF (0-5) H 09/18/19 07:45 Ur Epithelial Cells Few HPF (Negative) 09/18/19 07:45 Urine Crystals Negative HPF (Negative) 09/18/19 07:45 Urine Bacteria Few HPF (Negative) 09/18/19 07:45 Urine Casts 0-2 coarse granular LPF (Negative) 09/18/19 07:45 Urine Mucus Trace (Negative) 09/18/19 07:45 Ur Culture Indicated? Yes 09/18/19 07:45 Urine Glucose Cancelled 09/18/19 08:02
[2019-09-22] MEDS: Refresh PLUS Eye Drops 0.4ml 2 EACH OU (10:55)
[2019-09-22] MEDS: LORazepam 2 MG/ML VIAL 1 MG IVP ×2 (14:17→21:17)
--- NOTE | 2019-09-22 15:34 | CMPROGNOTE_ITS ---
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 CM continues to follow and provide support. A: Gale is a 74 year old female admitted to [facility] with dehydration, sepsis with a history of dementia and failing health. Now on comfort measures only for end of life care. P: Gale will remain at [facility] for end of life care. The family has chosen [facility] for final arrangements. CM will continue to support.
--- NOTE | 2019-09-22 15:34 | PDOC.CMPRO ---
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 CM continues to follow and provide support. A: Gale is a 74 year old female admitted to [facility] with dehydration, sepsis with a history of dementia and failing health. Now on comfort measures only for end of life care. P: Gale will remain at [facility] for end of life care. The family has chosen [facility] for final arrangements. CM will continue to support.
--- NOTE | 2019-09-23 08:11 | EXPE_ITS ---
Date of service: 09/23/19 Time of Service: 08:12 Discharge Sum: Prov Provider Consults: 09/18/19 13:20 Palliative Care Consult [CONS] Routine Consultation Status:: Follow-up needed Clarification:: One time opinion Reason for consult:: hospice candidate? Discharge Sum: Diag PCOD Cause of : Sepsis with hypotension Contributing Factors (1) Comfort measures only status: Contributing factors: Severe dementia, with hypernatremia at 180, sepsis, made [employer]URK[employer] ATTENDANT at daughters request. 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
== END 2019-09-23 02:37 | disposition expired | DRG 641 ==
LOC: ER 19:10 → MS 19:45
PROVIDERS: Admitting Provider General Practice; Emergency Provider Student in an Organized Health Care Education/Training Program; PCP Family Medicine; Visit Provider Internal Medicine
DX: E87.0 Hyperosmolality and hypernatremia (principal); N39.0 Urinary tract infection, site not specified; F02.81 Dementia in other diseases classified elsewhere, unspecified severity, with behavioral disturbance; F01.51 Vascular dementia, unspecified severity, with behavioral disturbance; N17.9 Acute kidney failure, unspecified; E86.0 Dehydration; Z51.5 Encounter for palliative care; G30.9 Alzheimer's disease, unspecified; L89.312 Pressure ulcer of right buttock, stage 2; L89.211 Pressure ulcer of right hip, stage 1
CPT/HCPCS: 36415; 51702; 80048; 80053; 85027; 93005; 96361; 99222; 99231; 99232; 99233; 99239; 99255; 99285; 70450; 81003; 81015; 83605; 84484; 85025; 85610; 87086; 93010; J0696; J1644; J2060